=== PATIENT | female | born 1955 | race Caucasian/White ===

== ENCOUNTER 2020-01-21 08:00 | Outpatient (CLI) | payer MEDICARE, OTHER, SELFPAY ==
--- NOTE | ~2020-01-21 | MM_ITS ---
EXAMINATION: MM screening ernesto BI w norbert HISTORY: Screening TECHNIQUE: Craniocaudal and mediolateral oblique 3-D tomosynthesis images were obtained and synthetic 2-D images were generated. CAD analysis was submitted and interpreted. COMPARISON: Comparison to multiple prior studies sequentially, with oldest reviewed study dated 11/24. BREAST PARENCHYMAL COMPOSITION: There are scattered areas of fibroglandular density. FINDINGS: There is no evidence of suspicious mass, calcification, or architectural distortion to sugg est malignancy in either breast. There has been no suspicious interval change. IMPRESSION: 1. No mammographic evidence of malignancy. 2. Recommend routine screening mammography in one year. BI-RADS Category 1: Negative Reviewed, dictated and finalized at location A.
== END 2020-01-21 08:01 | disposition home or self-care (01) ==
LOC: ANHIMG 08:06
PROVIDERS: PCP Family Medicine; Visit Provider Nurse Practitioner Obstetrics & Gynecology
DX: Z12.31 Encounter for screening mammogram for malignant neoplasm of breast (principal)
CPT/HCPCS: 77063; 77067

== ENCOUNTER 2020-03-02 14:58 | Outpatient (CLI) | payer MEDICARE, OTHER, SELFPAY ==
--- NOTE | ~2020-03-02 | DEXA_ITS ---
Bone Density Report Name: Siomara Pedro Age: 65 Sex: Female Ethnicity: White Date of : 1955 Indication: postmenopausal; height loss; cancer; asthma or emphysema; Referring Provider: Ricardo, Thelma Baneulos Study: Bone densitometry was performed. Exam Date: March 02, 2020 Accession number: [id number] Bone Density: Region BMD T-score Z-score Classification AP Spine (L1-L4) 1.090 0.4 2.2 Normal Femoral Neck (Left) 0.683 -1.5 0.1 Osteopenia Total Hip (Left) 0.887 -0.5 0.8 Normal Total Hip Bilateral Avg 0.935 -0.1 1.2 Normal Femoral Neck (Right) 0.714 -1.2 0.3 Osteopenia Total Hip (Right) 0.982 0.3 1.6 Normal World Health Organization criteria for BMD impression classify patients as: Normal (T-score at or above -1.0), Osteopenia (T-score between -1.0 and -2.5), or Osteoporosis (T-score at or below -2.5). 10-year Fracture Risk(1): Major Osteoporotic Fracture 9.0% Hip Fracture 1.0% Reported Risk Factors: [place] (), Neck BMD=0.683, BMI=28.1 (1) FRAX(R) Version 3.08. Fracture probability calculated for an untreated patient. Fracture probability may be lower if the patient has received treatment. Previous Exams: Region Exam Age BMD T-score BMD Change BMD Change Date g/cm2 vs Baseline vs Previous AP Spine(L1-L4) 03/02/2020 65 1.090 0.4 -0.042(-3.7%)* -0.021(-1.9%)# 01/04/2015 59 1.111 0.6 -0.021(-1.8%)# -0.021(-1.8%)# 10/24/2011 56 1.132 0.8 Total Hip(Left) 03/02/2020 65 0.887 -0.5 -0.167(-15.8%) -0.131(-12.9%) 01/04/2015 59 1.018 0.6 -0.035(-3.4%)# -0.035(-3.4%)# 10/24/2011 56 1.053 0.9 Total Hip(Right) 03/02/2020 65 0.982 0.3 -0.017(-1.7%) 0.023(2.4%)# 01/04/2015 59 0.959 0.1 -0.040(-4.0%)# -0.040(-4.0%)# 10/24/2011 56 1.000 0.5 *Denotes significance at 95% confidence level, LSC for AP Spine = 0.022 g/cm2, LSC for Total Hip = 0.027 g/cm2 Clinical Information Provided by Patient: Has used the following medications: Vitamin D Has the following medical conditions: Asthma or Emphysema, Cancer Patient maximum height was 70 Menopause Age: 55 No regular weight bearing exercise Does not regularly consume dairy products Drinks caffeinated beverages Onset of menses at age 13 Number of children 2 Impression: The patient has low bone mass, based on the Left Femoral Neck T-score. The patient has an estimated ten-year risk of hip fracture of 1% and an estimated ten-year ris
== END 2020-03-02 14:59 | disposition home or self-care (01) ==
LOC: ANHIMG 15:06
PROVIDERS: PCP Family Medicine; Visit Provider Nurse Practitioner Obstetrics & Gynecology
DX: Z78.0 Asymptomatic menopausal state (principal); M85.852 Other specified disorders of bone density and structure, left thigh; M85.851 Other specified disorders of bone density and structure, right thigh
CPT/HCPCS: 77080

== ENCOUNTER 2021-11-11 10:15 | Emergency (ER) | payer MEDICARE, SELFPAY ==
[2021-11-11 10:24] VITALS: BP 151/85; PULSE 81; RESP 18; TEMP 36.5; O2SAT 100
--- NOTE | 2021-11-11 10:39 | ED.GENADULT ---
HPI - General Adult General Chief complaint: Urogenital-Female Stated complaint: Possible UTI Source: patient Mode of arrival: ambulatory Limitations: no limitations History of Present Illness HPI narrative: Patient presents for evaluation of urinary symptoms since yesterday. Symptoms include urinary frequency, urgency, hesitancy, dysuria, suprapubic pain and mild nausea. No fever, chills, vomiting, low back pain or hematuria. She has had urinary tract infections in the past and this feels similar. She has increased her water intake which seems to help her symptoms. No additional complaints or concerns. Related Data Home Medications Medication Instructions Recorded Confirmed levothyroxine 100 mcg tablet 100 mcg PO DAILY 11/11/21 11/11/21 meloxicam 7.5 mg tablet 7.5 mg PO DAILY 11/11/21 11/11/21 valacyclovir 500 mg tablet 500 mg PO BID 11/11/21 11/11/21 Allergies Allergy/AdvReac Type Severity Reaction Status Date / Time Cephalosporins AdvReac Mild Nausea and Verified 11/11/21 10:17 Vomiting hydrocodone AdvReac Mild nausea Verified 11/11/21 10:17 prochlorperazine AdvReac Mild Nausea and Verified 11/11/21 10:17 Vomiting Review of Systems Review of Systems: CONSTITUTIONAL: Denies fever, chills, or sweats. EYES: Denies visual changes, redness, or discharge. ENT: Denies rhinorrhea, congestion, sore throat, or otalgia. CARDIOVASCULAR: Denies chest pain, palpitations, or edema. RESPIRATORY: Denies cough or dyspnea. GASTROINTESTINAL: Reports nausea and suprapubic discomfort. Denies vomiting or diarrhea. GENITOURINARY: Reports urinary hesitancy, frequency, urgency and dysuria. Denies hematuria SKIN: Denies rash or itching. MUSCULOSKELETAL: Denies back pain, joint pain, or myalgia. NEUROLOGIC: Denies headache, numbness, dizziness, or weakness. PSYCHIATRIC: Denies anxiety or depression. [facility] Past Medical History Medical History Asthma Hyperlipidemia Hypothyroidism Surgical History Surgical History History of arthroscopic surgery of shoulder History of left knee replacement Family History Family History Sibling Family history of cataracts Mother Hypertension Carcinoma of colon Father Family history of alcoholism Family history of congestive heart failure Carcinoma of colon Social History Social History Smoking status: Never smoker Second hand tobacco smoke exposure: No Alcohol intake: current Substance use: never Living arrangements: with family Gender identity (if verbalized by the patient): Female Sexual Orientation (if Verbalized by the Patient): Straight or Heterosexual Spiritual care concerns: No Exam Narrative: GENERAL: Well-appearing, well-nourished, and in no acute distress. HEAD: Normocephalic, atraumatic. EYES: PERRLA and EOMI. ENT: Nares clear, no rhinorrhea or epistaxis. Mucous membranes moist. Oropharynx without tonsillar hypertrophy exudate or other lesions. Bilateral TMs pearly east nonbulging NECK: Supple. No adenopathy or masses. No carotid bruits or JVD CHEST: Clear to auscultation. No respiratory distress. No wheezes rales or rhonchi HEART: Regular rate and rhythm. No murmur heard. Normal peripheral pulses. ABDOMEN: Soft, mild suprapubic tenderness without rebound or guarding. Abdomen is nondistended, normal active bowel sounds. EXTREMITIES: Normal range of motion. No edema. SKIN: Warm, dry, no rash. NEURO: No focal deficits. Alert and oriented x3. PSYCH: Normal mood and affect. Course Course Emergency Course: This is a 66-year-old female who presented for evaluation of urinary symptoms. She had leukocytes and blood on urine today. Will tx for UTI with bactrim. Advised to go to ER for fever, chills, intract
== END 2021-11-11 10:39 | disposition home or self-care (01) ==
PROVIDERS: Emergency Provider Nurse Practitioner; PCP Family Medicine
DX: N39.0 Urinary tract infection, site not specified (principal); J45.909 Unspecified asthma, uncomplicated; E78.5 Hyperlipidemia, unspecified; E03.9 Hypothyroidism, unspecified; Z96.652 Presence of left artificial knee joint
CPT/HCPCS: 81003; 87086; 99213; G0463